=== PATIENT | female | born 1970 | race Caucasian/White ===

== ENCOUNTER → 2017-01-29 | Day surgery (SDC) | payer OTHER ==
--- NOTE | 2017-01-30 14:11 | PATH ---
Surgical Pathology Report Patient Name: [facility]DAIR [facility]IGHT [facility]. Rec. #: [id number] /Age/Gender: 1970 (Age: 46) / F Account: [id number] [facility] Taken: 01/29/2017 Received: 01/29/2017 Reported: 01/30/2017 Physicians: Cristy Nye M.D. Specimen(s) Received LEFT BREAST CORE BIOPSY 12:00, 2CM FN Clinical History Ultrasound findings: Suspicious Final Diagnosis BREAST, LEFT, 12:00, 2 CMFN, CORE BIOPSY: BENIGN BREAST TISSUE SHOWING STROMAL FIBROSIS. Electronically Signed Kathy Fenton M.D. Gross Description Received in formalin labeled "left breast biopsy 12:00, 2cmfn," is a 1.2 x 0.8 x 0.2 cm aggregate of multiple hubbard-yellow, irregular to cylindrical portions of fibroadipose tissue. The formalin is filtered and the specimen is entirely submitted in one cassette. Time to formalin fixation: 2 minutes Total formalin fixation time: Approximately 6 hours. 01/29/2017 saudi01/29/2017
== END | disposition home or self-care (01) ==
LOC: FRADUS-SUR 10:56
PROVIDERS: ATTEND Surgery
PROC: 0HBU3ZX Excision of Left Breast, Percutaneous Approach, Diagnostic (ICD-10-PCS; principal; 2017-01-29)
DX: N63 Unspecified lump in breast (principal); N60.32 Fibrosclerosis of left breast
CPT/HCPCS: 19083; 87899; 88305-TC; A4648; G0206-TC